=== PATIENT | female | born 1985 | race Caucasian/White ===

== ENCOUNTER 2017-10-20 07:13 | Emergency (ER) | payer SELFPAY ==
[~2017-10-20] VITALS: Ht 162.6 cm; Wt 83.5 kg
[2017-10-20 07:17] VITALS: BP 121/72; Ht 162.6 cm; Wt 83.5 kg
== END 2017-10-20 08:15 | disposition home or self-care (01) ==
LOC: ED 07:13
DX: L05.01 Pilonidal cyst with abscess (principal)

== ENCOUNTER 2017-10-24 09:11 | Emergency (ER) | payer SELFPAY ==
[~2017-10-24] VITALS: Ht 152.4 cm; Wt 85.3 kg
[2017-10-24 10:40] VITALS: BP 102/61
== END 2017-10-24 10:41 | disposition home or self-care (01) ==
LOC: ED 09:11
DX: Z48.01 Encounter for change or removal of surgical wound dressing (principal)
CPT/HCPCS: J2001; J2270; Q0162

== ENCOUNTER 2017-10-27 07:12 | Emergency (ER) | payer SELFPAY ==
[~2017-10-27] VITALS: Ht 165.1 cm; Wt 83.0 kg
[2017-10-27 07:40] VITALS: Ht 165.1 cm; Wt 83.0 kg
[2017-10-27 09:40] VITALS: BP 103/68
== END 2017-10-27 09:40 | disposition home or self-care (01) ==
LOC: ED 07:12
DX: Z48.01 Encounter for change or removal of surgical wound dressing (principal)

== ENCOUNTER 2017-11-02 08:14 | Emergency (ER) | payer SELFPAY ==
[~2017-11-02] VITALS: Ht 160 cm; Wt 84.5 kg
[2017-11-02 08:22] VITALS: Ht 160 cm; Wt 84.5 kg
[2017-11-02 09:29] VITALS: BP 111/65
== END 2017-11-02 09:29 | disposition home or self-care (01) ==
LOC: ED 08:14
DX: Z48.01 Encounter for change or removal of surgical wound dressing (principal); R52 Pain, unspecified